=== PATIENT | male | born 1940 | race Hispanic/Latino ===

== ENCOUNTER 2019-06-18 09:02 | Observation (INO) | payer OTHER ==
[~2019-06-18] VITALS: Ht 172.7 cm; Wt 77.1 kg
[~2019-06-18 09:02] MED LIST: AMLODIPINE BESY10 MG PO; CEPHALEXIN500 MG PO; GLIPIZIDE10 MG PO; LISINOPRIL10 MG PO; NOVOLIN N100 UNIT/1 SQ; PANTOPRAZOLE SO40 MG PO; PIOGLITAZONE HC45 MG PO; ULTRAM50 MG PO
[2019-06-18] MEDS ORDERED: DEXTROSE 50% SYRINGE 50 ML IV STA (09:14)
[2019-06-18] MEDS ORDERED: OCTREOTIDE ACETATE 0.05 MG/ML AMP SQ ONE (09:15)
[2019-06-18] MEDS: DEXTROSE 5%/0.9% SOD CHL 1,000 ML IV SCH ×3 (09:39→21:40)
--- NOTE | 2019-06-18 09:53 | NUR ---
MEAL TRAY AT BEDSIDE
--- NOTE | 2019-06-18 10:07 | Diagnostic Imaging Report ---
Chest, portable AP view History: Mental status, hypoglycemia Comparison: No comparisons available for review IMPRESSION: The heart is within normal limits of size. The mediastinal and hilar contours are unremarkable. The aorta demonstrates atherosclerotic calcifications. No focal consolidation, pleural effusion, or pneumothorax. Signed by: Mickey Khan MD on 06/18/2019 10:03 AM
[2019-06-18 10:25] LABS: BASOPHILS % 0.2 % (0.0-1.0); EOSINOPHILS % 0.4 % (0.0-6.0); HEMATOCRIT 34.9 % (38.2-49.6); HEMOGLOBIN 11.8 g/dL (14.0-18.0); LYMPHOCYTES # (AUTO) 0.7 (1.0-3.2); MEAN CORPUSCULAR HGB CONC 33.8 g/dL (31-35); MEAN CORPUSCULAR VOLUME 94.6 fL (81-99); MONOCYTES # (AUTO) 0.6 (0.2-0.8); MONOCYTES % 12.1 % (4.4-11.3); NEUTROPHILS # (AUTO) 3.3 (2.1-6.9); NEUTROPHILS % 71.6 % (38.7-80.0); PLATELET COUNT 157 x10e3/uL (140-360); RED BLOOD COUNT 3.69 x10e6/uL (4.3-5.7)
[2019-06-18 10:33] LABS: CLARITY,URINE HAZY (CLEAR); COLOR,URINE YELLOW (YELLOW)
[2019-06-18 10:35] LABS: INR 1.01; PROTHROMBIN TIME 13.8 seconds (11.9-14.5)
[2019-06-18 10:36] LABS: AMORPHOUS SEDIMENT,URINE FEW (FEW); BACTERIA,URINE MODERATE /HPF; BILIRUBIN,URINE NEGATIVE (NEGATIVE); EPITHELIAL CELLS,URINE MODERATE /LPF; KETONES,URINE TRACE (NEGATIVE); LEUKOCYTE ESTERASE ,URINE NEGATIVE (NEGATIVE); NITRITE,URINE NEGATIVE (NEGATIVE); PROTEIN,URINE DIPSTICK NEGATIVE (NEGATIVE); RBC,URINE 0-5 /HPF (0-5); URINE UROBILINOGEN 0.2 mg/dL (0.2 - 1)
[2019-06-18 10:36] LABS: PARTIAL THROMBOPLASTIN TIME 31.6 seconds (23.8-35.5)
[2019-06-18 10:37] LABS: MUCUS,URINE MODERATE (RARE)
[2019-06-18 10:44] LABS: ALBUMIN 3.9 g/dL (3.5-5.0); ALBUMIN/GLOBULIN RATIO 1.1 (0.8-2.0); ANION GAP 16.1 mmol/L (8-16); CALCIUM 9.1 mg/dL (8.4-10.2); CREATININE, SERUM 1.47 mg/dL (0.72-1.25); MAGNESIUM 1.7 MG/DL (1.3-2.1); POTASSIUM 4.1 mmol/L (3.5-5.1)
[2019-06-18 10:51] LABS: CREATINE KINASE MB 1.9 ng/mL (0-5.0)
--- NOTE | 2019-06-18 11:21 | NUR ---
PATIENT SITING UP EATING MEAL TRAY
[2019-06-18] MEDS ORDERED: DEXTROSE 50% SYRINGE 50 ML IV PRN (11:30)
--- OUTSIDE RECORDS SUMMARY | 2019-06-18 11:45 | XMS REPORT ---
Author [facility] Address Unknown Phone Unavailable Care Team Providers Care Rigger Helper Name Role Phone Randall DUGGAN Unavailable Unavailable Problems This patient has no known problems. Allergies, Adverse Reactions, Alerts This patient has no known allergies or adverse reactions. Medications This patient has no known medications. Results Test Description Test Time Test Comments Text Results Atomic Results Result Comments CHEST SINGLE (PORTABLE) 2019-06-18 10:03:00 [place] [address] Patient Name: DARIEN COOK MR #: [id number] : 1940 Age/Sex: 79/M Req #: [id number] Adm Physician: Ordered by: MICHAEL DUGGAN MD Report #: [id number] Location: ER Room/Bed: Procedure: [id number] DX/CHEST SINGLE (PORTABLE) Exam Date: 06/18/19 Exam Time: 948 REPORT STATUS: Signed Chest, portable AP view History: Mental status, h ypoglycemia Comparison: No comparisons available for review IMPRESSION: The heart is within normal limits of size. The mediastinal and hilar contours are unremarkable. The aorta demonstrates atherosclerotic calcifications. No focal consolidation, pleural effusion, or pneumothorax. Signed by: Mickey Cuellar MD on 06/18/2019 10:03 AM Dictated By: MICKEY CUELLAR MD [id number] Transcribed By: WAGNER on 06/18/19 1003 COPY TO: MICHAEL DUGGAN MD
[2019-06-18] MEDS ORDERED: OCTREOTIDE ACETATE 0.05 MG/ML AMP SQ SCH (12:00)
[2019-06-18 17:16] LABS: CREATINE KINASE MB 1.8 ng/mL (0-5.0)
[2019-06-18 17:52] VITALS: BP 142/70
[2019-06-18 18:01] VITALS: BP_SYST 142
[2019-06-18 18:10] VITALS: BP 142/70
--- NOTE | 2019-06-18 19:48 | NUR ---
Report given to [facility] shift [facility]. Respiration even and unlabored without SOB. Call light in reach
[2019-06-18 20:00] VITALS: BP 142/70
--- NOTE | 2019-06-18 20:00 | NUR ---
RECEIVED REPORT FROM AM NURSE, PATIENT RESTING IN BED, FAMILY AT THE BEDSIDE, IV INFUSING. WILL CONTINUE TO MONITOR. CALL LIGHT IN REACH.
[2019-06-18 20:53] VITALS: BP 140/74
[2019-06-18] MEDS: OCTREOTIDE ACETATE 0.05 MG/ML AMP SQ SCH (21:40)
[2019-06-19 00:42] VITALS: BP 150/71
[2019-06-19 00:57] LABS: CREATINE KINASE MB 1.4 ng/mL (0-5.0)
[2019-06-19] MEDS: OCTREOTIDE ACETATE 0.05 MG/ML AMP SQ SCH ×2 (04:41→09:28)
[2019-06-19 05:27] LABS: BASOPHILS % 0.6 % (0.0-1.0); EOSINOPHILS % 0.9 % (0.0-6.0); HEMATOCRIT 35.3 % (38.2-49.6); HEMOGLOBIN 11.7 g/dL (14.0-18.0); LYMPHOCYTES % 30.7 % (18.0-39.1); MEAN CORPUSCULAR HEMOGLOBIN 31.7 pg (28-32); MEAN CORPUSCULAR HGB CONC 33.1 g/dL (31-35); MEAN CORPUSCULAR VOLUME 95.7 fL (81-99); MONOCYTES # (AUTO) 0.5 (0.2-0.8); MONOCYTES % 15.2 % (4.4-11.3); NEUTROPHILS # (AUTO) 1.7 (2.1-6.9); PLATELET COUNT 163 x10e3/uL (140-360); RED BLOOD COUNT 3.69 x10e6/uL (4.3-5.7); RED CELL DISTRIBUTION WIDTH 13.9 % (11.7-14.4)
[2019-06-19 05:45] LABS: ALBUMIN 3.2 g/dL (3.5-5.0); ANION GAP 10.3 mmol/L (8-16); CALCIUM 8.6 mg/dL (8.4-10.2); CREATININE, SERUM 1.25 mg/dL (0.72-1.25); POTASSIUM 4.3 mmol/L (3.5-5.1)
[2019-06-19 06:06] VITALS: BP 144/70
--- NOTE | 2019-06-19 07:02 | NUR ---
REPORT GIVEN TO ONCOMING NURSE.
--- NOTE | 2019-06-19 07:06 | NUR ---
Received patient lying in bed with eyes closed. Family at bedside. Respiration even and unlabored without SOB.Call light in reach.
[2019-06-19 07:37] VITALS: BP 120/62
[2019-06-19 09:45] VITALS: BP 120/62
[2019-06-19] MEDS ORDERED: CEFTRIAXONE SOD 1 GM/NS 50 ML 50 ML IV ONE (09:45)
[2019-06-19 11:38] VITALS: BP 132/71
--- NOTE | 2019-06-19 12:45 | NUR ---
PIV to right hand discontinued, catheter tip intact, no bleeding noted.
--- NOTE | 2019-06-19 13:00 | NUR ---
Patient is transported via wheelchair to private vehicle. All belongings are carried by family members.
--- NOTE | 2019-06-20 03:42 | Discharge Summary ---
The patient was on observation. FINAL DIAGNOSES: 1. Confusion secondary to hypoglycemia. 2. Prostatitis, urinary tract infection. PRIMARY CARE PHYSICIAN: Dr. Fuentes Brooks. The patient will go home today with Cipro 250 mg twice a day for 10 days. He did receive Rocephin 1 g IV one time. The patient will discontinue his glipizide. Continue with other medication. Discussed with the patient and family at length regarding glipizide associated with hypoglycemia secondary to chronic kidney disease. BUN and creatinine of 10 and 1.25 respectively. The patient is otherwise stable. He is completely back to his baseline. No further glipizide. Treat the infection. The patient will be discharged home today. MD IGOR Hanson/NUHA /[id number]
== END 2019-06-19 13:00 | disposition home or self-care (01) ==
LOC: ER 09:02 → ERHOLD 11:33 → MED/SURG2 17:30
PROVIDERS: ADMIT Internal Medicine; ATTEND Internal Medicine
DX: E11.649 Type 2 diabetes mellitus with hypoglycemia without coma (principal); E78.5 Hyperlipidemia, unspecified; Z79.4 Long term (current) use of insulin; Z83.3 Family history of diabetes mellitus; K21.9 Gastro-esophageal reflux disease without esophagitis; N40.0 Benign prostatic hyperplasia without lower urinary tract symptoms; N41.9 Inflammatory disease of prostate, unspecified; N39.0 Urinary tract infection, site not specified; R41.82 Altered mental status, unspecified
CPT/HCPCS: 36415; 71045; 80053 ×2; 81001; 82550 ×2; 82553 ×2; 82948 ×2; 83735; 84484 ×2; 85025 ×2; 85610; 85730; 87086; 93005; 99284; G0378 ×2; J0696; J2354 ×2; J7042; J7799

== ENCOUNTER 2021-04-14 10:23 | Inpatient (IN) | payer OTHER ==
[~2021-04-14] VITALS: Ht 165.1 cm; Wt 67.6 kg
[2021-04-14 10:58] LABS: BASOPHILS % 0.3 % (0.0-1.0); EOSINOPHILS % 0.3 % (0.0-6.0); HEMATOCRIT 30.3 % (38.2-49.6); LYMPHOCYTES # (AUTO) 0.8 (1.0-3.2); LYMPHOCYTES % 9.8 % (18.0-39.1); MEAN CORPUSCULAR HEMOGLOBIN 29.5 pg (28-32); MEAN CORPUSCULAR VOLUME 89.4 fL (81-99); MONOCYTES # (AUTO) 0.8 (0.2-0.8); MONOCYTES % 9.7 % (4.4-11.3); NEUTROPHILS # (AUTO) 6.1 (2.1-6.9); NEUTROPHILS % 79.4 % (38.7-80.0); PLATELET COUNT 349 x10e3/uL (140-360); RED BLOOD COUNT 3.39 x10e6/uL (4.3-5.7)
[2021-04-14 11:17] LABS: CLARITY,URINE CLEAR (CLEAR); COLOR,URINE YELLOW (YELLOW); KETONES,URINE 1+ (NEGATIVE); LEUKOCYTE ESTERASE ,URINE SMALL (NEGATIVE); NITRITE,URINE NEGATIVE (NEGATIVE); PROTEIN,URINE DIPSTICK 1+ (NEGATIVE); URINE UROBILINOGEN 0.2 mg/dL (0.2 - 1)
[2021-04-14 11:22] LABS: INR 1.18; PROTHROMBIN TIME 15.3 seconds (11.9-14.5)
[2021-04-14 11:23] LABS: PARTIAL THROMBOPLASTIN TIME 40.3 seconds (23.8-35.5)
[2021-04-14 11:27] LABS: ALBUMIN/GLOBULIN RATIO 0.6 (0.8-2.0); ANION GAP 17.2 mmol/L (8-16); CREATININE, SERUM 2.25 mg/dL (0.72-1.25); POTASSIUM 4.2 mmol/L (3.5-5.1)
[2021-04-14 11:37] LABS: BACTERIA,URINE FEW /HPF; MUCUS,URINE FEW (RARE); RBC,URINE 0-5 /HPF (0-5)
[2021-04-14] MEDS ORDERED: ASPIRIN 81 MG CHEW TAB PO STA (11:44)
[2021-04-14] MEDS ORDERED: CEFTRIAXONE 1 GM in SODIUM CHLORIDE 0.9% 50ML 50 ML IV ONE (11:45)
[2021-04-14] MEDS ORDERED: HEPARIN SOD (PORCINE) 5,000 UNIT/ML VIAL IV ONE (13:15)
[2021-04-14] MEDS ORDERED: DEXTROSE 50% SYRINGE 50 ML IV PRN (13:30)
[2021-04-14] MEDS ORDERED: ONDANSETRON HCL INJ 2MG/ML 2ML 2 MG/ML VIAL IV PRN (13:30)
[2021-04-14] MEDS ORDERED: GLIMEPIRIDE4 MG PO (13:42)
[2021-04-14] MEDS ORDERED: LOVASTATIN20 MG PO (13:42)
[2021-04-14] MEDS ORDERED: MACROBID 100 M100 MG PO (13:42)
[2021-04-14] MEDS ORDERED: CILOSTAZOL100 MG PO (13:42)
[2021-04-14] MEDS: HEPARIN 25,000 UNIT 900 UNIT in DEXTROSE 5% 250ML 250 ML IV SCH (13:52)
[2021-04-14] MEDS ORDERED: HEPARIN 25,000 UNIT DRIP IV ONE (13:54)
[2021-04-14] MEDS ORDERED: NOVOLIN N100 UNIT/1 SQ (15:30)
[2021-04-14 15:35] VITALS: BP 138/58
[2021-04-14 16:00] VITALS: BP 138/58
[2021-04-14 16:30] VITALS: BP 138/58
[2021-04-14] MEDS: FUROSEMIDE INJ 10 MG/ML 4 ML VIAL IV SCH (17:48)
[2021-04-14] MEDS: METOPROLOL SUCCINATE 25 MG TAB XL PO SCH (17:48)
[2021-04-14] MEDS: ASPIRIN 81 MG CHEW TAB PO SCH (17:48)
[2021-04-14] MEDS: INSULIN LISPRO 100 UNIT/1 ML 3ML VIAL SQ SCH ×2 (18:02→21:19)
[2021-04-14 19:19] LABS: CREATINE KINASE MB 2.2 ng/mL (0-5.0)
[2021-04-14 20:00] VITALS: BP 121/61
[2021-04-14 20:16] VITALS: BP 121/61
[2021-04-14] MEDS: ATORVASTATIN 20 MG TAB PO SCH (21:14)
[2021-04-15] VITALS (8 sets, daily range): BP systolic 104–116; BP diastolic 50–71
[2021-04-15 01:04] LABS: CREATINE KINASE MB 1.1 ng/mL (0-5.0)
[2021-04-15] MEDS ORDERED: ONDANSETRON HCL INJ 2MG/ML 2ML 2 MG/ML VIAL IV PRN (02:15)
[2021-04-15] MEDS ORDERED: ACETAMINOPHEN 325 MG TAB PO PRN (02:15)
[2021-04-15] MEDS ORDERED: HYDRALAZINE HCL 20 MG/ML VIAL IV PRN (02:15)
[2021-04-15] MEDS ORDERED: DEXAMETHASONE SOD PHOS INJ 4 MG/ML SDV IV ONE (02:30)
[2021-04-15] MEDS ORDERED: TRAMADOL HCL 50 MG TAB PO PRN (02:30)
[2021-04-15] MEDS ORDERED: SODIUM CHLORIDE 0.9% 250ML 250 ML ONE (02:53)
[2021-04-15 06:45] LABS: BASOPHILS % 0.1 % (0.0-1.0); HEMATOCRIT 27.3 % (38.2-49.6); HEMOGLOBIN 9.3 g/dL (14.0-18.0); LYMPHOCYTES # (AUTO) 0.3 (1.0-3.2); LYMPHOCYTES % 2.7 % (18.0-39.1); MEAN CORPUSCULAR HEMOGLOBIN 29.5 pg (28-32); MEAN CORPUSCULAR HGB CONC 34.1 g/dL (31-35); MEAN CORPUSCULAR VOLUME 86.7 fL (81-99); MONOCYTES # (AUTO) 0.2 (0.2-0.8); MONOCYTES % 2.3 % (4.4-11.3); NEUTROPHILS % 94.3 % (38.7-80.0); PLATELET COUNT 354 x10e3/uL (140-360); RED BLOOD COUNT 3.15 x10e6/uL (4.3-5.7)
[2021-04-15 07:14] LABS: ALBUMIN 2.5 g/dL (3.5-5.0); ALBUMIN/GLOBULIN RATIO 0.6 (0.8-2.0); ANION GAP 16.8 mmol/L (8-16); CALCIUM 8.4 mg/dL (8.4-10.2); CREATININE, SERUM 2.12 mg/dL (0.72-1.25); POTASSIUM 4.8 mmol/L (3.5-5.1)
[2021-04-15 07:55] LABS: PHOSPHORUS 4.1 MG/DL (2.3-4.7)
[2021-04-15 08:04] LABS: CREATINE KINASE MB 1.6 ng/mL (0-5.0)
[2021-04-15] MEDS: PANTOPRAZOLE SOD 40 MG TABEC PO SCH (08:10)
[2021-04-15] MEDS: INSULIN LISPRO 100 UNIT/1 ML 3ML VIAL SQ SCH ×4 (08:10→20:20)
[2021-04-15 08:17] LABS: THYROID STIMULATING HORMONE 0.434 uIU/mL (0.350-4.940)
[2021-04-15] MEDS ORDERED: TRAMADOL HCL 50 MG TAB PO SCH (09:00)
[2021-04-15] MEDS: ASPIRIN 81 MG CHEW TAB PO SCH (09:15)
[2021-04-15] MEDS: CILOSTAZOL 100 MG TAB PO SCH ×2 (09:16→16:43)
[2021-04-15] MEDS: MULTIVITAMINS/MINERALS TAB PO SCH (09:16)
[2021-04-15] MEDS: FUROSEMIDE INJ 10 MG/ML 4 ML VIAL IV SCH (09:16)
[2021-04-15] MEDS: METOPROLOL SUCCINATE 25 MG TAB XL PO SCH (09:16)
[2021-04-15] MEDS: CEFTRIAXONE 1 GM in SODIUM CHLORIDE 0.9% 50ML 50 ML IV SCH (11:56)
[2021-04-15] MEDS: HEPARIN 25,000 UNIT 900 UNIT in DEXTROSE 5% 250ML 250 ML IV SCH ×2 (12:42→20:20)
[2021-04-15 12:45] LABS: CREATININE,URINE RANDOM 176.24 mg/dL (63-166); TOTAL PROTEIN, URINE 37.6 mg/dL (1-14)
[2021-04-15] MEDS: SODIUM BICARBONATE 650 MG TAB PO SCH (16:43)
[2021-04-15] MEDS: ATORVASTATIN 20 MG TAB PO SCH (20:26)
[2021-04-15] MEDS ORDERED: PRAVASTATIN 20 MG TAB PO SCH (21:00)
[2021-04-16 01:17] VITALS: BP 107/57
[2021-04-16 04:46] VITALS: BP 106/64
[2021-04-16 06:04] LABS: ALBUMIN 2.3 g/dL (3.5-5.0); ALBUMIN/GLOBULIN RATIO 0.6 (0.8-2.0); ANION GAP 14.1 mmol/L (8-16); CALCIUM 8.2 mg/dL (8.4-10.2); CREATININE, SERUM 2.03 mg/dL (0.72-1.25); POTASSIUM 4.1 mmol/L (3.5-5.1)
[2021-04-16] MEDS: INSULIN LISPRO 100 UNIT/1 ML 3ML VIAL SQ SCH ×4 (07:30→20:42)
[2021-04-16 08:28] VITALS: BP 106/64
[2021-04-16] MEDS: MULTIVITAMINS/MINERALS TAB PO SCH (09:45)
[2021-04-16] MEDS: CILOSTAZOL 100 MG TAB PO SCH (09:45)
[2021-04-16] MEDS: ASPIRIN 81 MG CHEW TAB PO SCH (09:45)
[2021-04-16] MEDS: FUROSEMIDE INJ 10 MG/ML 4 ML VIAL IV SCH (09:46)
[2021-04-16] MEDS: PANTOPRAZOLE SOD 40 MG TABEC PO SCH (09:46)
[2021-04-16] MEDS: SODIUM BICARBONATE 650 MG TAB PO SCH ×2 (09:46→17:54)
[2021-04-16] MEDS: METOPROLOL SUCCINATE 25 MG TAB XL PO SCH (09:46)
[2021-04-16] MEDS: CEFTRIAXONE 1 GM in SODIUM CHLORIDE 0.9% 50ML 50 ML IV SCH (12:00)
[2021-04-16 14:36] LABS: HIV 1&2 AB SCREEN NON-REACTIVE (NONREACTIVE)
[2021-04-16 15:24] VITALS: BP 103/55
[2021-04-16] MEDS: ENOXAPARIN 30 MG/0.3 ML SYR SC SCH (17:54)
[2021-04-16 19:57] VITALS: BP 108/56
[2021-04-16] MEDS: ATORVASTATIN 20 MG TAB PO SCH (20:40)
[2021-04-16 21:00] VITALS: BP 108/56
[2021-04-17] VITALS (8 sets, daily range): BP systolic 111–140; BP diastolic 63–74
[2021-04-17] MEDS: INSULIN LISPRO 100 UNIT/1 ML 3ML VIAL SQ SCH ×4 (07:30→20:44)
[2021-04-17] MEDS: SODIUM BICARBONATE 650 MG TAB PO SCH ×2 (08:53→16:38)
[2021-04-17] MEDS: MULTIVITAMINS/MINERALS TAB PO SCH (08:53)
[2021-04-17] MEDS: ASPIRIN 81 MG CHEW TAB PO SCH (08:53)
[2021-04-17] MEDS: FUROSEMIDE 40 MG TAB PO SCH (08:53)
[2021-04-17] MEDS: PANTOPRAZOLE SOD 40 MG TABEC PO SCH (08:53)
[2021-04-17] MEDS: METOPROLOL SUCCINATE 25 MG TAB XL PO SCH (08:54)
[2021-04-17] MEDS: CEFTRIAXONE 1 GM in SODIUM CHLORIDE 0.9% 50ML 50 ML IV SCH (11:56)
[2021-04-17] MEDS: ENOXAPARIN 30 MG/0.3 ML SYR SC SCH (16:38)
[2021-04-17] MEDS: ATORVASTATIN 20 MG TAB PO SCH (20:43)
[2021-04-18] VITALS (9 sets, daily range): BP systolic 116–143; BP diastolic 57–75
[2021-04-18] MEDS: INSULIN LISPRO 100 UNIT/1 ML 3ML VIAL SQ SCH ×4 (07:30→20:32)
[2021-04-18] MEDS: FUROSEMIDE 40 MG TAB PO SCH (09:13)
[2021-04-18] MEDS: MULTIVITAMINS/MINERALS TAB PO SCH (09:13)
[2021-04-18] MEDS: SODIUM BICARBONATE 650 MG TAB PO SCH ×2 (09:13→17:32)
[2021-04-18] MEDS: ASPIRIN 81 MG CHEW TAB PO SCH (09:13)
[2021-04-18] MEDS: PANTOPRAZOLE SOD 40 MG TABEC PO SCH (09:13)
[2021-04-18] MEDS: METOPROLOL SUCCINATE 25 MG TAB XL PO SCH (09:20)
[2021-04-18] MEDS: CEFTRIAXONE 1 GM in SODIUM CHLORIDE 0.9% 50ML 50 ML IV SCH (12:00)
[2021-04-18] MEDS: ENOXAPARIN 30 MG/0.3 ML SYR SC SCH (17:32)
[2021-04-18] MEDS: ATORVASTATIN 20 MG TAB PO SCH (20:32)
[2021-04-19] VITALS (8 sets, daily range): BP systolic 113–137; BP diastolic 62–74
[2021-04-19 06:50] LABS: ANION GAP 16.5 mmol/L (8-16); CALCIUM 8.3 mg/dL (8.4-10.2); CREATININE, SERUM 1.23 mg/dL (0.72-1.25); POTASSIUM 3.5 mmol/L (3.5-5.1)
[2021-04-19] MEDS: INSULIN LISPRO 100 UNIT/1 ML 3ML VIAL SQ SCH ×4 (07:30→20:50)
[2021-04-19] MEDS: SODIUM BICARBONATE 650 MG TAB PO SCH ×2 (09:00→17:32)
[2021-04-19] MEDS: MULTIVITAMINS/MINERALS TAB PO SCH (09:00)
[2021-04-19] MEDS: ASPIRIN 81 MG CHEW TAB PO SCH (09:00)
[2021-04-19] MEDS: METOPROLOL SUCCINATE 25 MG TAB XL PO SCH (09:00)
[2021-04-19] MEDS: FUROSEMIDE 40 MG TAB PO SCH (09:00)
[2021-04-19] MEDS: CEFTRIAXONE 1 GM in SODIUM CHLORIDE 0.9% 50ML 50 ML IV SCH (12:00)
[2021-04-19] MEDS: ENOXAPARIN 30 MG/0.3 ML SYR SC SCH (17:31)
[2021-04-19] MEDS: PANTOPRAZOLE SOD 40 MG TABEC PO SCH (17:32)
[2021-04-19] MEDS ORDERED: POTASSIUM CHLORIDE 20 MEQ TAB CR PO STA (18:17)
[2021-04-19] MEDS: ATORVASTATIN 20 MG TAB PO SCH (20:50)
[2021-04-20 00:20] VITALS: BP 118/68
[2021-04-20 04:49] VITALS: BP 138/74
[2021-04-20] MEDS: PANTOPRAZOLE SOD 40 MG TABEC PO SCH (08:22)
[2021-04-20] MEDS: ASPIRIN 81 MG CHEW TAB PO SCH (08:23)
[2021-04-20] MEDS: SODIUM BICARBONATE 650 MG TAB PO SCH (08:23)
[2021-04-20] MEDS: MULTIVITAMINS/MINERALS TAB PO SCH (08:23)
[2021-04-20] MEDS: METOPROLOL SUCCINATE 25 MG TAB XL PO SCH (08:24)
[2021-04-20] MEDS: INSULIN LISPRO 100 UNIT/1 ML 3ML VIAL SQ SCH ×2 (08:25→11:09)
[2021-04-20] MEDS ORDERED: FUROSEMIDE 40 MG TAB PO SCH (09:00)
[2021-04-20 09:18] VITALS: BP 139/72
[2021-04-20 09:19] VITALS: BP 139/72
[2021-04-20 11:09] VITALS: BP 123/64
[2021-04-20] MEDS: CEFTRIAXONE 1 GM in SODIUM CHLORIDE 0.9% 50ML 50 ML IV SCH (11:09)
[2021-04-20] MEDS ORDERED: FUROSEMIDE40 MG PO (14:22)
[2021-04-20] MEDS ORDERED: TOPROL XL25 MG PO (14:22)
[2021-04-20] MEDS ORDERED: ASPIRIN CHEW81 MG PO (14:22)
[2021-04-20] MEDS ORDERED: SODIUM BICARBO650 MG PO (14:22)
== END 2021-04-20 16:15 | disposition home or self-care (01) | DRG 280 ==
LOC: ER 10:33 → ERHOLD 13:27 → MED/SURG3 15:00
PROVIDERS: ADMIT Internal Medicine; ATTEND Internal Medicine
DX: I13.0 Hypertensive heart and chronic kidney disease with heart failure and stage 1 through stage 4 chronic kidney disease, or unspecified chronic kidney disease (principal); I50.33 Acute on chronic diastolic (congestive) heart failure; I21.A1 Myocardial infarction type 2; J96.01 Acute respiratory failure with hypoxia; J69.0 Pneumonitis due to inhalation of food and vomit; N17.9 Acute kidney failure, unspecified; N39.0 Urinary tract infection, site not specified; E87.2 Acidosis; E78.5 Hyperlipidemia, unspecified; R77.8 Other specified abnormalities of plasma proteins; N18.32 Chronic kidney disease, stage 3b; E11.22 Type 2 diabetes mellitus with diabetic chronic kidney disease; Z20.822 Contact with and (suspected) exposure to COVID-19; Z87.891 Personal history of nicotine dependence; H93.239 Hyperacusis, unspecified ear; E88.09 Other disorders of plasma-protein metabolism, not elsewhere classified; I35.0 Nonrheumatic aortic (valve) stenosis; E87.6 Hypokalemia; Z79.82 Long term (current) use of aspirin; Z79.4 Long term (current) use of insulin
CPT/HCPCS: 36415; 51700; 70450; 71045; 71250; 76770; 80048; 80053; 80061; 81001; 82550; 82553; 82570; 82948; 83605; 83735; 83880; 84100; 84156; 84443; 84484; 85025; 85610; 85730; 86140; 87040; 87086; 87390; 93005; 93306; 96372; 99284; G0433; G0435; J0456; J0696; J1100; J1644; J1650; J1940; J7050; U0002